=== PATIENT | male | born 1995 | race Hispanic/Latino ===

== ENCOUNTER 2022-02-05 00:14 | Emergency (ER) | payer SELFPAY ==
[2022-02-05] MEDS ORDERED: Lidocaine 1% PF 5 ML VIAL ONE (00:31)
[2022-02-05] MEDS ORDERED: Boostrix 0.5 ML (Tdap) VIAL ONE (00:31)
== END 2022-02-05 01:20 | disposition home or self-care (01) ==
LOC: ERS 00:14
DX: S61.412A Laceration without foreign body of left hand, initial encounter (principal); W45.8XXA Other foreign body or object entering through skin, initial encounter
CPT/HCPCS: 12002; 90471; 90715